=== PATIENT | female | born 1960 | race Caucasian/White ===

== ENCOUNTER 2021-08-02 15:40 | Outpatient (CLI) | payer MEDICARE | END 2021-08-02 23:59 | disposition home or self-care (01) | LOC: LAB.N 15:40 | PROVIDERS: ATTEND Physician Assistant | DX: R53.83 Other fatigue (principal); R53.81 Other malaise; Z20.822 Contact with and (suspected) exposure to COVID-19 ==

== ENCOUNTER 2022-07-20 10:42 | Outpatient (CLI) | payer MEDICARE ==
--- NOTE | 2022-07-20 14:56 | DEXA Report ---
PROCEDURE: Dexa Spine and/or Hip INDICATIONS: POST MENOPAUSAL TECHNIQUE: Dual energy x-ray absorptiometry (DXA) was performed on a [employer] System. Regions measur ed are the AP Spine, femoral neck, and if needed forearm. COMPARISON: None. FINDINGS: Lumbar Spine: Bone Mineral Density 0.880 g/cm/cm,T score -2.5, osteoporosis Left Hip: Bone Mineral Density 0.746 g/cm/cm,T score -2.1, osteopenia Left Femoral Neck: Bone Mineral Density 0.762 g/cm/cm, T score -2.0, osteopenia (T score greater or equal to -1.0: NORMAL) (T score from -1.1 to -2.4: OSTEOPENIA) (T score less than or equal to -2.5 to: OSTEOPOROSIS) Impression: Based on WHO criteria, the patient has osteoporosis. Patients with diagnosis of osteoporosis or osteopenia should have regular bone mineral density assess ment. For those eligible for Medicare, routine testing is allowed once every 2 years. Testing frequ ency can be increased for patients who have rapidly progressing disease or for those who are receivin g medical therapy to restore bone mass. Reviewed by: Taurus Alberts MD on 07/20/2022 2:55 PM PST Approved by: Taurus Alberts MD on 07/20/2022 2:55 PM PST Station ID: [id number]
== END 2022-07-20 10:43 | disposition home or self-care (01) ==
LOC: DI 10:42
PROVIDERS: ATTEND Nurse Practitioner Family
DX: Z78.0 Asymptomatic menopausal state (principal); M81.0 Age-related osteoporosis without current pathological fracture

== ENCOUNTER 2022-07-20 10:43 | Outpatient (CLI) | payer MEDICARE ==
--- NOTE | 2022-07-25 09:34 | Mammography Report ---
BILATERAL DIGITAL SCREENING MAMMOGRAM 3D/2D: 07/20/2022 CLINICAL: Routine screening. Comparison is made to exams dated: 04/20/2020 mammogram, 02/15/2019 mammogram, 09/14/2016 mammogram, mammogram - [facility], 09/19/2013 mammogram, and 09/12/2012 mammogram - [facility]. Both breasts are heterogeneously dense, which may obscure small masses (category c / 51-75% glandular tissue). No significant masses, calcifications, or other findings are seen in either breast. There has been no significant interval change. IMPRESSION: NEGATIVE There is no mammographic evidence of malignancy. A 1 year screening mammogram is recommended. Based on the Tyrer Cuzick model (a risk assessment model) the patients lifetime risk is 12.4% and he r 10 year risk is 5.3%. According to the ACR, ACS, and NCCN guidelines, an annual breast MRI exam teresita ng with mammogram is recommended if the patients lifetime risk is 20% or greater. This exam was interpreted at Station ID: [id number]. NOTE: For mammograms, a report in lay terms will be sent to the patient. Approximately 15% of breast malignancies will not be visualized mammographically. In the management of a palpable breast mass, a negative mammogram must not discourage biopsy of a clinically suspicious lesion. Electronically Signed By: Micky [email or web address]:07/25/2022 08:07:02 ACR BI-RADS Category 1: Negative 3341F PARENCHYMAL PATTERN: (D) - The breast(s) demonstrate(s) heterogeneously dense fibroglandular neville joel. BI-RADS CATEGORY: (1) - 1 RECOMMENDATION: (ANNUAL) - Recommend routine annual screening mammography. [id number] 1 year screening LATERALITY: (B)
== END 2022-07-20 10:44 | disposition home or self-care (01) ==
LOC: DI 10:43
PROVIDERS: ATTEND Nurse Practitioner Family
DX: Z12.31 Encounter for screening mammogram for malignant neoplasm of breast (principal)

== ENCOUNTER 2023-04-15 09:17 | Outpatient (CLI) | payer MEDICARE ==
--- NOTE | 2023-04-17 12:11 | MRI Report ---
PROCEDURE: MRI brain without contrast INDICATIONS: COGNITIVE DECLINE IN PATIENT <65 YO TECHNIQUE: Multiplanar multisequential MR images of the brain were obtained without contrast COMPARISON: None FINDINGS: CSF Spaces: Basal cisterns are patent. No extra-axial fluid collections. Ventricles are normal in size and shape. Brain: There is moderate cerebral atrophy and screws slightly more prominent in the frontal lobes. No evidence of white matter chronic ischemic change present. No intracranial masses or hemorrhage. Gra y/white matter interface is normal. Brainstem appears normal. Diffusion-weighted images shows no ev idence of acute infarct. Normal intravascular flow voids are present. Skull and face: Calvarium has normal marrow signal. Orbits appear normal. Sinuses: Sinuses and mastoids are clear. IMPRESSION: Moderate cerebral atrophy without chronic ischemic change. Reviewed by: Eduardo Kruse MD on 04/17/2023 11:10 AM KATJA Approved by: Eduardo Kruse MD on 04/17/2023 11:10 AM KATJA Station ID: [id number]
== END 2023-04-15 09:18 | disposition home or self-care (01) ==
LOC: DI 09:17
PROVIDERS: ATTEND Nurse Practitioner Family
DX: R41.89 Other symptoms and signs involving cognitive functions and awareness (principal); F48.9 Nonpsychotic mental disorder, unspecified; R27.0 Ataxia, unspecified; G31.89 Other specified degenerative diseases of nervous system; I67.82 Cerebral ischemia

== ENCOUNTER 2023-10-17 13:04 | Outpatient (CLI) | payer MEDICARE ==
--- NOTE | 2023-10-18 09:43 | Mammography Report ---
BILATERAL DIGITAL SCREENING MAMMOGRAM 3D/2D: 10/17/2023 CLINICAL: Routine screening. Comparison is made to exams dated: 07/20/2022 mammogram - [facility], 04/20/2020 ma mmogram, and 02/15/2019 mammogram - [facility]. Both breasts are heterogeneously dense, which may obscure small masses (category c / 51-75% glandular tissue). No significant masses, calcifications, or other findings are seen in either breast. There has been no significant interval change. IMPRESSION: NEGATIVE There is no mammographic evidence of malignancy. A 1 year screening mammogram is recommended. Based on the Tyrer Cuzick model (a risk assessment model) the patient's lifetime risk is 11.7% and he r 10 year risk is 5.3%. According to the ACR, ACS, and NCCN guidelines, an annual breast MRI exam teresita ng with mammogram is recommended if the patient's lifetime risk is 20% or greater. This exam was interpreted at Station ID: [id number]. NOTE: For mammograms, a report in lay terms will be sent to the patient. Approximately 15% of breast malignancies will not be visualized mammographically. In the management of a palpable breast mass, a negative mammogram must not discourage biopsy of a clinically suspicious lesion. Electronically Signed By: Dexter [email or web address]:10/17/2023 14:48:28 letter sent: No_Letter ACR BI-RADS Category 1: Negative 3341F PARENCHYMAL PATTERN: (D) - The breast(s) demonstrate(s) heterogeneously dense fibroglandular neville joel. BI-RADS CATEGORY: (1) - 1 Mammogram [id number] 1 year screening LATERALITY: (B)
== END 2023-10-17 13:05 | disposition home or self-care (01) ==
LOC: DI.N 13:04
DX: Z12.31 Encounter for screening mammogram for malignant neoplasm of breast (principal); R92.333 Mammographic heterogeneous density, bilateral breasts